=== PATIENT | female | born 1985 | race Caucasian/White ===

== ENCOUNTER 2016-10-20 20:09 | Emergency (ER) | payer MEDICAID ==
[~2016-10-20] VITALS: Ht 157.5 cm; Wt 76.4 kg
[~2016-10-20 20:09] MED LIST: PREN-385 PO
--- NOTE | 2016-10-20 20:29 | NUR ---
PT TAKEN TO [facility] FROM [facility]
[2016-10-20 21:57] VITALS: BP 119/68
--- NOTE | 2016-10-20 23:00 | NUR ---
31 Y/O F BIBA W/C/O NECK PAIN AND DIFFICULTY SWALLOWING D/T PAIN X TODAY. PT DENIES ANY SOB OR DIFFICULTY SWALLOWING AT THE MOMENT, JUST STATES TO HAVE MANDIBLE SORENESS AND HEADACHES. NO MED HX.
--- NOTE | 2016-10-20 23:17 | NUR ---
Dr. Verdin evaluating patient
[2016-10-20] MEDS ORDERED: IBUPROFEN 800 MG TAB PO ONE (23:30)
[2016-10-20 23:43] VITALS: BP 111/67
== END 2016-10-20 23:44 | disposition home or self-care (01) ==
LOC: MED 20:10
DX: R68.84 Jaw pain (principal); R07.0 Pain in throat; K14.6 Glossodynia
CPT/HCPCS: 72040; 99284

== ENCOUNTER 2022-11-20 13:20 | Emergency (ER) | payer MEDICAID ==
[~2022-11-20] VITALS: Ht 160 cm; Wt 74.8 kg
[2022-11-20 13:26] VITALS: BP 129/71
--- NOTE | 2022-11-20 13:36 | NUR ---
PATIENT AMBULATED TO ER BED 02
[2022-11-20] MEDS ORDERED: ONDANSETRON 4 MG/2 ML VIAL IVP ONE (14:10)
[2022-11-20] MEDS ORDERED: NACL 0.9% 1,000 ML IV ONE (14:10)
[2022-11-20] MEDS ORDERED: MORPHINE SULFATE 4 MG/ML SYR IVP ONE (14:10)
[2022-11-20 14:24] LABS: BASOPHILS # (AUTO) 0.1 K/uL (0.00-0.22); BASOPHILS % (AUTO) 0.9 % (0.0-2.0); EOSINOPHILS # (AUTO) 0.5 K/uL (0-0.4); HEMATOCRIT 40.2 % (36-48); HEMOGLOBIN 13.7 g/dL (12.0-16.0); LYMPHOCYTES # (AUTO) 2.6 K/uL (2.5-16.5); LYMPHOCYTES % (AUTO) 31.7 % (20.5-51.1); MEAN CORPUSCULAR HEMOGLOBIN 30 pg (27-31); MEAN CORPUSCULAR HGB CONC 34 g/dL (33-37); MEAN CORPUSCULAR VOLUME 87.2 fL (80-94); MONOCYTES # (AUTO) 0.5 K/uL (0.8-1.0); MONOCYTES % (AUTO) 5.5 % (1.7-9.3); NEUTROPHILS # (AUTO) 4.7 K/uL (1.8-7.7); NEUTROPHILS % (AUTO) 55.9 % (42.2-75.2); PLATELET COUNT (AUTO) 324 K/uL (140-450); RED BLOOD CELL COUNT(AUTO) 4.61 MIL/uL (4.20-5.40); RED CELL DISTRIBUTION WIDTH 13.5 % (11.6-13.7); WHITE BLOOD COUNT (AUTO) 8.3 K/uL (4.8-10.8)
[2022-11-20 14:43] LABS: APPEARANCE,URINE CLEAR (CLEAR); BILIRUBIN,URINE NEGATIVE (NEGATIVE); BLOOD, URINE NEGATIVE (NEGATIVE); COLOR,URINE YELLOW (YELLOW); LEUKOCYTE ESTERASE ,URINE NEGATIVE (NEGATIVE); NITRITE, URINE NEGATIVE (NEGATIVE); UGLUCOSE NEGATIVE (NEGATIVE)
[2022-11-20 14:50] LABS: ALBUMIN 3.9 g/dL (3.4-5.0); ANION GAP 13.1 (8-16); CARBON DIOXIDE 25.6 mmol/L (21-32); CREATININE 0.6 mg/dL (0.6-1.3); POTASSIUM 3.7 mmol/L (3.5-5.1); TOTAL BILIRUBIN 0.3 mg/dL (0.0-1.0)
[2022-11-20] MEDS ORDERED: SUCR1TAB35 PO (15:40)
[2022-11-20] MEDS ORDERED: FAMO-92 PO (15:40)
[2022-11-20] MEDS ORDERED: ONDA-188 SL (15:40)
--- NOTE | 2022-11-20 16:05 | NUR ---
Patient discharged with v/s stable. Written and verbal after care instructions given and explained. Patient alert, oriented and verbalized understanding of instructions. Ambulatory with steady gait. All questions addressed prior to discharge. ID band removed. Patient advised to follow up with PMD. Rx of ale bonner given. Patient educated on indication of medication including possible reaction and side effects. Opportunity to ask questions provided and answered.
== END 2022-11-20 16:05 | disposition home or self-care (01) ==
LOC: MED 13:30
DX: K27.9 Peptic ulcer, site unspecified, unspecified as acute or chronic, without hemorrhage or perforation (principal); Z90.49 Acquired absence of other specified parts of digestive tract; Z98.890 Other specified postprocedural states; Z79.899 Other long term (current) drug therapy
CPT/HCPCS: 36415; 76705; 80053; 81003; 83690; 85025; 96361; 96374; 96375; 99285; J2270; J2405; J7030; Q0092